=== PATIENT | female | born 1940 | race African-American/Black ===

== ENCOUNTER 2016-04-10 12:47 | Observation (INO) | payer MEDICARE, MEDICAID ==
--- NOTE | 2016-04-10 13:30 | ER Document Report ---
Addendum entered and electronically signed by RAQUEL THOMAS NP 04/11/16 11:20 : Course - Re-evaluation Re-evalutation: 04/11/16 11:19 Before I left my shift on 04/10/[address] Samuel for admission. He agreed, pt admitted to [facility]. Jonas Nelson updated. - Vital Signs Vital signs: Temp Pulse Resp BP Pulse Ox 97.1 F 94 19 137/60 H 100 04/11/16 08:04 04/11/16 08:04 04/11/16 08:04 04/11/16 08:04 04/11/16 08:04 - Laboratory Result Diagrams: 04/11/16 07:10 04/11/16 07:10 Laboratory results interpreted by me: 04/10/16 04/10/16 04/10/16 13:23 13:23 15:55 Hgb 11.0 L Hct 33.6 L RDW 16.1 H Seg Neutrophils % 78.3 H Lymphocytes % 12.0 L Potassium 5.1 H AST 59 H Albumin 3.3 L Urine Ketones TRACE H Addendum entered and electronically signed by JONAS NELSON PA 04/10/16 21:21: Discharge - Discharge Clinical Impression: Altered mental status Qualifiers: Altered mental status type: unspecified Qualified Code(s): R41.82 - Altered mental status, unspecified Condition: Stable Disposition: ADMITTED INPATIENT Admitting Provider: Hospitalist - Dr. Samuel Referrals: MYNOR BULL MD [Primary Care Provider] - Follow up as needed Original Note: ED General - General Stated Complaint: ALTERED MENTAL STATUS Mode of Arrival: Medic Information source: Emergency Med Personnel Notes: Patient presents to the emergency department. [facility] reports [facility] [place] sent patient for a decline in well-being. Patient was just discharged from [facility] 2 days ago after treatment for pneumonia. Patient is lethargic and does not answer questions. TRAVEL OUTSIDE OF THE [place] IN LAST 30 DAYS: No - HPI Onset: This morning Onset/Duration: Persistent Quality of pain: No pain Associated symptoms: None Exacerbated by: Denies Relieved by: Denies Similar symptoms previously: Yes Recently seen / treated by doctor: Yes - Related Data Allergies/Adverse Reactions: strawberry [[place]] Allergy (Severe, Verified 03/23/16 06:10) rash heparin Allergy (Intermediate, Verified 03/27/16 13:23) Thrombocytopenia Past Medical History - General Information source: Relative - daughters, Emergency Med Personnel, Outside Facility Records - Social History Smoking Status: Unknown if Ever Smoked Cigarette use (# per day): No Frequency of alcohol use: None Drug Abuse: None Lives with: Assisted Family History: CVA, Hyperlipidemia, Hypertension, Other - No information available at this point in time. - Past Medical History Cardiac Medical History: Reports: Hx Coronary Artery Disease, Hx DVT, Hx Heart Attack, Hx Hypercholesterolemia, Hx Hypertension Denies: Hx Congestive Heart Failure, Hx Pulmonary Embolism Pulmonary Medical History: Reports: Hx Bronchitis, Hx COPD, Hx Pneumonia Neurological Medical History: Reports: Hx Cerebrovascular Accident, Hx Seizures - Last episode December,. Endocrine Medical History: Denies: Hx Diabetes Mellitus Type 1, Hx Diabetes Mellitus Type 2, Hx Hyperthyroidism, Hx Hypothyroidism Malignancy Medical History: Reports: Hx Lung Cancer - "Spot" of lung cancer, with apparently no treatment plan. GI Medical History: Denies: Hx Cirrhosis, Hx Hepatitis Musculoskeltal Medical History: Reports Hx Arthritis Skin Medical History: Denies Hx Eczema, Denies Hx Psoriasis Psychiatric Medical History: Reports: Hx Dementia Infectious Medical History: Denies: Hx Hepatitis Past Surgical History: Reports: Hx Appendectomy, Hx Neurologic Surgery - cerebral aneurysm clips x2, Other - Clipping of cerebral aneurysm; implantation of subcutaneous venous port. - Immunizations Hx Diphtheria, Pertussis, Tetanus Vaccination: No Review of Systems - Review of Systems Notes: Review HPI for review of systems., All other systems negative Physical Exam - Vital signs Vitals: Temp Pulse Resp BP Pulse Ox 97.5 F 84 20 117/58 L 99 04/10/16 12:57 04/10/16 12:57 04/10/16 12:57 04/10/16 12:57 04/10/16 12:57 - Notes Notes: PHYSICAL EXAMINATION: GENERAL: lethargic HEAD: Atraumatic, normocephalic. EYES: Pupils equal round extraocular movements intact, sclera anicteric, conjunctiva are normal. ENT: nares patent, dry whispers- unable to understand NECK: laying on left side LUNGS: decreased, agonal breathing at times HEART: Regular rate ABDOMEN: Soft, no tenderness. No guarding, no rebound EXTREMITIES: Normal range of motion, no pitting edema. No cyanosis. NEUROLOGICAL: Cranial nerves grossly intact. Normal sensory/motor exams. PSYCH: flat SKIN: Warm, Dry, normal turgor, no rashes or lesions noted Course - Re-evaluation Re-evalutation: 04/10/16 Daughter was in patient's room she reports mother was sitting up in bed eating food last . She reports this is different from mother's usually affect. Possible seizure. Will contact [facility]. 04/10/16 17:27 I contacted patient's nurse Linh at [facility]. She reports patient's demeanor has changed since discharge from the hospital and arrival at [facility]. She reports that this patient would nod her head and speak to her in whispers yesterday. She reports this morning the patient would not eat breakfast, did not take her medications and was not responding, would not nod. 04/10/16 18:[address] Franco regarding patient's presentation labs. He advised admission for altered mental status. Paged Dr. Dodson, no response. Patient turned position changed patient mumbles no clear words. No distress respiratory rate even at this time 04/10/16 20:00 Report given to Jonas HORN. - Vital Signs Vital signs: Temp Pulse Resp BP Pulse Ox 97.5 F 84 15 116/61 100 04/10/16 12:57 04/10/16 12:57 04/10/16 18:42 04/10/16 18:43 04/10/16 18:43 - Laboratory Result Diagrams: 04/10/16 13:23 04/10/16 13:23 Laboratory results interpreted by me: 04/10/16 04/10/16 04/10/16 13:23 13:23 15:55 Hgb 11.0 L Hct 33.6 L RDW 16.1 H Seg Neutrophils % 78.3 H Lymphocytes % 12.0 L Potassium 5.1 H AST 59 H Albumin 3.3 L Urine Ketones TRACE H - Diagnostic Test Radiology reviewed: Image reviewed, Reports reviewed - atelectasis LLL per xray CT notes chronic changes - EKG Interpretation by Me EKG shows normal: Sinus rhythm When compared to previous EKG there are: No significant change Discharge - Discharge Clinical Impression: Altered mental status Qualifiers: Altered mental status type: unspecified Qualified Code(s): R41.82 - Altered mental status, unspecified Condition: Stable Disposition: ADMITTED INPATIENT [facility]
[2016-04-10 13:49] LABS: ABSOLUTE BASOPHILS # (AUTO) 0.1 10^3/uL (0.0-0.2); ABSOLUTE LYMPHOCYTES (AUTO) 1.1 10^3/uL (0.5-4.7); ABSOLUTE MONOCYTES (AUTO) 0.8 10^3/uL (0.1-1.4); ABSOLUTE NEUT (AUTO) 7.4 10^3/uL (1.7-8.2); BASOPHILS % (AUTO) 0.9 % (0-2); EOSINOPHILS % (AUTO) 0.2 % (0-6); HEMATOCRIT 33.6 % (36.0-47.0); HGB HCT DIFFERENCE -0.6; MEAN CORPUSCULAR HEMOGLOBIN 27.3 pg (27.0-33.4); MEAN CORPUSCULAR HGB CONC 32.6 g/dL (32.0-36.0); MEAN CORPUSCULAR VOLUME 84 fl (80-97); MONOCYTES % (AUTO) 8.6 % (3-13); RED BLOOD COUNT 4.02 10^6/uL (3.72-5.28); RED CELL DISTRIBUTION WIDTH 16.1 % (11.5-14.0); SEGMENTED NEUTROPHILS % (AUTO) 78.3 % (42-78); WHITE BLOOD COUNT 9.5 10^3/uL (4.0-10.5)
[2016-04-10 14:08] LABS: ALANINE AMINOTRANSFERASE 45 U/L (9-52); ALBUMIN 3.3 g/dL (3.5-5.0); ALKALINE PHOSPHATASE 103 U/L (38-126); ANION GAP 11 (5-19); ASPARTATE AMINO TRANSFERASE 59 U/L (14-36); BILIRUBIN,TOTAL 0.7 mg/dL (0.2-1.3); BLOOD UREA NITROGEN 15 mg/dL (7-20); CALCIUM 9.6 mg/dL (8.4-10.2); CARBON DIOXIDE 26 mmol/L (22-30); CHLORIDE 102 mmol/L (98-107); CREATININE RESULT 0.59 mg/dL (0.52-1.25); GLUCOSE 98 mg/dL (75-110); POTASSIUM 5.1 mmol/L (3.6-5.0); SODIUM 139.4 mmol/L (137-145); TOTAL PROTEIN 7.3 g/dL (6.3-8.2)
[2016-04-10 16:30] LABS: APPEARANCE,URINE SLIGHTLY-CLOUDY; BILIRUBIN,URINE NEGATIVE (NEGATIVE); GLUCOSE, URINE NEGATIVE (NEGATIVE); KETONES,URINE TRACE mg/dL (NEGATIVE); LEUKOCYTE ESTERASE,URINE NEGATIVE (NEGATIVE); NITRITE,URINE NEGATIVE (NEGATIVE); PROTEIN,URINE NEGATIVE (NEGATIVE); URINE SPECIFIC GRAVITY 1.017; UROBILINOGEN,URINE NEGATIVE mg/dL (<2.0)
[2016-04-10] MEDS ORDERED: NORMAL SALINE 1000 ML 1,000 ML IV PRN (19:36)
--- NOTE | 2016-04-10 21:21 | EKG REPORT ---
SEVERITY:- ABNORMAL ECG - SINUS RHYTHM PROBABLE LEFT VENTRICULAR HYPERTROPHY NONSPECIFIC LATERAL ST CHANGES : Confirmed by: Anthony Owsuu MD 10-Apr-2016 21:20:52
[2016-04-10] MEDS ORDERED: DEXTROSE 5%-NORMAL SALINE 1,000 ML IV PRN (21:46)
[2016-04-10] MEDS ORDERED: ACETAMINOPHEN 650 MG SUPP.RECT PR PRN (21:46)
[2016-04-10 21:57] LABS: ADD ON TESTING BLD IN LAB ACKNOWLEDGE
--- NOTE | 2016-04-10 22:19 | PDOC H&P ---
History of Present Illness Admission Date/PCP: MYNOR BULL--[facility] Patient complains of: AMS History of Present Illness: JOSE ANGEL ROBERTSON is a 75 year old female, currently residing at [facility], well known to the hospitalist service for multiple admissions this year for a number of issues, who presents to the emergency room for evaluation of above complaint. Patient has been discussed with emergency room nurse practitioner who evaluated the patient. Patient is aphasic, and only minimally interactive and is able to provide no history whatsoever in terms of acute or chronic events, review of systems, personal habits, family history, etc. No friends or family are present. Old inpatient records are reviewed.. She was sent from the shelter for a "decline in well-being." Was noted to be sitting up in bed and eating food of this week. Staff reported that patient was not responding as much as usual today. No further information available this point in time. No report of fever; patient has been afebrile and hemodynamically stable since arrival in the emergency room. Hospitalized on our service 04/02 through 04/07/2016, with transfer diagnoses including pulmonary emboli and left lung mass. Transfer summary has been reviewed. For a more complete discussion of her other recent medical history, please refer to history and physical 03/23/2016, when she was admitted for probable aspiration pneumonia. Document has been reviewed, and is available for further review in [employer]. Laboratory results are listed in [employer] and are reviewed. X-ray summary results are listed below, with full report(s) reviewed. . EKG reviewed and compared to prior tracing from 04/02/2016 Social history/personal habits: . Currently residing at [facility]. No alcohol or tobacco use since May 2015. Family History : At least one child as asthma. All siblings are . Uncertain cause of of her parents. Allergies/adverse reactions are listed in [employer] and are reviewed. Home medications are reviewed from her recent transfer summary to [facility] and are to be reconciled by nursing staff [facility]. [facility] medications initially autopopulated into [employer] may not accurately reflect patient's true medications, dosages, and/or frequencies. REVIEW OF SYSTEMS: See history and present illness. No further information available this point in time. PHYSICAL EXAMINATION: 5 feet 4 inches tall. 40.8 kg. BMI 15.4 kg/m. Blood pressure 136/65. Pulse 94 and regular. 100% saturation on room air. Respirations are 17 and unlabored. Temperature 97.5. Thin elderly -[place] female who nevertheless appears approximately her stated age. She is awake, and does look at examiner when she is addressed in a normal volume voice. Appears on occasion to attempt to speak, but otherwise makes no effort to do same and makes no other attempt to interact with examiner , other than following examiner at times with her eyes. No obvious distress. Skin is warm and dry. No grossly obvious evidence of rash in areas of skin examined. No subcutaneous nodules palpated. ENT: Hearing grossly normal to normal conversation. Tongue midline on very slight protrusion pink and slightly moist. Eyes: No scleral icterus. Pupils equal and reactive to light at 3 mm. Serena conjunctivae. No raccoon eyes. Neck is nontender to palpation. Midline trachea. No palpable thyroid nodule mass enlargement or tenderness. Lymphatic: No palpable cervical or clavicular nodes. Psychiatric: Can't be adequately evaluated due to her current status. Lungs: Auscultation reveals clear and equal breath sounds bilaterally. No use of accessory respiratory muscles. Cardiovascular: Heart regular rate and rhythm, without gallop murmur or rub. No carotid or abdominal aortic bruits. No ankle or pedal edema. Faintly palpable dorsalis pedis pulses. Abdomen: soft, slightly distended nontender with positive bowel sounds. Unable to adequately evaluate abdomen for masses or organomegaly due to distention. Extremities: Feet are warm and dry. No calf tenderness to compression. No grossly obvious visual evidence of calf swelling. Both lower extremities are contracted somewhat at hips and knees, severely limiting any range of motion attempt. Neurologic: Patellar reflexes absent. Absent Babinski. Light touch can't be determined due to her current status.. Does not respond to request for dorsiflexion or plantar flexion of her feet. Completely aphasic. Past Medical History Past Medical History: For more complete description of her past medical history, please refer to documentation in history and physical, March 23 of last year. Cardiac Medical History: Reports: Coronary Artery Disease, DVT, Myocardial Infarction, Hyperlipidema, Hypertension, Pulmonary Embolism Denies: Congestive Heart Failure Pulmonary Medical History: Reports: Bronchitis, Chronic Obstructive Pulmonary Disease (COPD), Pneumonia Neurological Medical History: Reports: Seizures - Last episode December,. Endocrine Medical History: Denies: Diabetes Mellitus Type 1, Diabetes Mellitus Type 2, Hyperthyroidism, Hypothyroidism Malignancy Medical History: Reports: Lung Cancer - Left lung nodule, felt to be malignant, with no treatment planned. GI Medical History: Denies: Cirrhosis, Hepatitis Musculoskeltal Medical History: Reports: Arthritis Skin Medical History: Denies: Eczema, Psoriasis Psychiatric Medical History: Reports: Dementia Hematology: Denies: Anemia Past Surgical History Past Surgical History: Reports: Appendectomy, Other - Clipping of cerebral aneurysm; implantation of subcutaneous venous port. Social History Information Source: Emergency Med Personnel, [facility] Records Lives with: Assisted Smoking Status: Former Smoker Frequency of Alcohol Use: None Hx Recreational Drug Use: No Drugs: None Hx Prescription Drug Abuse: No - Advance Directive Resuscitation Status: Full Code Surrogate healthcare decision maker:: Her son Oumar Chaidez Family History Family History: CVA, Hyperlipidemia, Hypertension, Other - No information available at this point in time. Parental Family History Reviewed: Yes - old records reviewed. Children Family History Reviewed: Yes Sibling(s) Family History Reviewed.: Yes Medication/Allergy Home Medications: Fluticasone Propionate [Flonase Nasal [place] 50 Mcg/[place] 16 gm] 1 spray NASL DAILY #1 06/08/15 Albuterol Sulfate [Proair HFA] 2 puff IH Q4HP PRN 07/27/15 Carvedilol 12.5 mg PO BID 09/21/15 Lactulose 15 ml PO QHS 11/09/15 Lacosamide [Vimpat 100 mg Tablet] 200 mg PO Q12 #30 tablet 12/24/15 Acetaminophen [Tylenol 325 mg Tablet] 650 mg PO Q6 PRN 03/23/16 Amlodipine Besylate [Norvasc 5 mg Tablet] 10 mg PO DAILY 03/23/16 Magnesium Oxide [Mag-Ox 400 mg Tablet] 400 mg PO DAILY 03/23/16 Omeprazole 20 mg PO DAILY 03/23/16 Albuterol Sulfate [Ventolin 0.083% Neb 2.5 mg/3 mL Ampul] 2.5 mg NEB RTQ4HP PRN vial.neb 03/28/16 Apixaban [Eliquis 5 mg Tablet] 5 mg PO Q12A tablet 04/07/16 Budesonide/Formoterol Fumarate [Symbicort HFA 80-4.5 mcg Inhaler 6.9 gm] 2 puff IH BID #1 inhaler 04/07/16 Lorazepam [Ativan 0.5 mg Tablet] 0.5 mg PO Q6HP PRN #10 tablet 04/07/16 Allergies/Adverse Reactions: strawberry [[place]] Allergy (Severe, Verified 04/10/16 21:22) rash heparin Allergy (Intermediate, Verified 04/10/16 21:22) Thrombocytopenia Physical Exam Vital Signs: Temp Pulse Resp BP Pulse Ox 97.5 F 84 15 136/65 H 100 04/10/16 12:57 04/10/16 12:57 04/10/16 21:01 04/10/16 21:01 04/10/16 21:01 Intake & Output 04/09/16 04/10/16 04/11/16 00:59 00:59 00:59 Weight 40.823 kg Results Laboratory Results: 04/10/16 13:23 04/10/16 13:23 04/10/16 04/10/16 04/10/16 13:23 13:23 13:23 WBC 9.5 RBC 4.02 Hgb 11.0 L Hct 33.6 L MCV 84 MCH 27.3 MCHC 32.6 RDW 16.1 H Plt Count 419 Seg Neutrophils % 78.3 H Lymphocytes % 12.0 L Monocytes % 8.6 Eosinophils % 0.2 Basophils % 0.9 Absolute Neutrophils 7.4 Absolute Lymphocytes 1.1 Absolute Monocytes 0.8 Absolute Eosinophils 0.0 Absolute Basophils 0.1 Sodium 139.4 Potassium 5.1 H Chloride 102 Carbon Dioxide 26 Anion Gap 11 BUN 15 Creatinine 0.59 Est GFR ( Amer) > 60 Est GFR (Non-Af Amer) > 60 Glucose 98 Lactic Acid 1.3 Calcium 9.6 Total Bilirubin 0.7 AST 59 H ALT 45 Alkaline Phosphatase 103 Total Protein 7.3 Albumin 3.3 L Lipase 78.0 Urine Color Urine Appearance Urine pH Ur Specific [place] Urine Protein Urine Glucose (UA) Urine Ketones Urine Blood Urine Nitrite Ur Leukocyte Esterase Urine WBC (Auto) Urine RBC (Auto) 04/10/16 15:55 WBC RBC Hgb Hct MCV MCH MCHC RDW Plt Count Seg Neutrophils % Lymphocytes % Monocytes % Eosinophils % Basophils % Absolute Neutrophils Absolute Lymphocytes Absolute Monocytes Absolute Eosinophils Absolute Basophils Sodium Potassium Chloride Carbon Dioxide Anion Gap BUN Creatinine Est GFR ( Amer) Est GFR (Non-Af Amer) Glucose Lactic Acid Calcium Total Bilirubin AST ALT Alkaline Phosphatase Total Protein Albumin Lipase Urine Color YELLOW Urine Appearance SLIGHTLY-CLOUDY Urine pH 7.0 Ur Specific [place] 1.017 Urine Protein NEGATIVE Urine Glucose (UA) NEGATIVE Urine Ketones TRACE H Urine Blood NEGATIVE Urine Nitrite NEGATIVE Ur Leukocyte Esterase NEGATIVE Urine WBC (Auto) 5 Urine RBC (Auto) 9 Impressions: Chest X-Ray 04/10/16 13:29 IMPRESSION: NO ACUTE RADIOGRAPHIC FINDING IN THE CHEST. Head CT 04/10/16 16:53 IMPRESSION: Chronic changes. No acute abnormality. Assessment & Plan - Diagnosis (1) Acute encephalopathy Is this a current diagnosis for this admission?: YesPlan: Uncertain etiology at this point in time. May simply be an element of dehydration. No obvious source of infection has been detected. No reported fever and none documented since arrival in the emergency room. Hopefully will clear with time and supportive care. Swallow screen pending--passed, per floor nurse. (2) Hyperkalemia Is this a current diagnosis for this admission?: YesPlan: Mild. Follow-up Chem-7. (3) Anticoagulated Is this a current diagnosis for this admission?: YesPlan: Resume home medications as appropriate once these have been reviewed. (4) History of pulmonary embolism Is this a current diagnosis for this admission?: Yes (5) Dysphagia Qualifiers: Dysphagia type: unspecified Qualified Code(s): R13.10 - Dysphagia, unspecified Is this a current diagnosis for this admission?: YesPlan: Recurrent problem since prior stroke. (6) Full code status Is this a current diagnosis for this admission?: Yes (7) History of CVA (cerebrovascular accident) Is this a current diagnosis for this admission?: Yes (8) History of DVT (deep vein thrombosis) Is this a current diagnosis for this admission?: Yes (9) Seizure disorder Is this a current diagnosis for this admission?: YesPlan: Seizure precautions.Resume home medications as appropriate once these have been reviewed. - Time Time Spent with patient: 60 minutes
[2016-04-10 22:20] LABS: MAGNESIUM 2.2 mg/dL (1.6-2.3)
[2016-04-10] MEDS ORDERED: ALBUTEROL SULFATE 0.083% NEB 2.5 MG/3 ML AMPUL NEB PRN (22:38)
[2016-04-10] MEDS ORDERED: ENALAPRILAT DIHYDRATE INJ/PF 1.25 MG/1 ML SDV IV PRN (22:58)
[2016-04-10 23:11] LABS: PROTHROMBIN TIME 14.7 SEC (11.4-15.4)
[2016-04-10 23:12] LABS: PARTIAL THROMBOPLASTIN TIME 36.6 SEC (23.5-35.8)
[2016-04-10 23:21] LABS: ANION GAP 13 (5-19); BLOOD UREA NITROGEN 13 mg/dL (7-20); CALCIUM 8.8 mg/dL (8.4-10.2); CARBON DIOXIDE 23 mmol/L (22-30); CHLORIDE 104 mmol/L (98-107); CREATINE KINASE 353 U/L (30-135); CREATININE RESULT 0.51 mg/dL (0.52-1.25); GLUCOSE 93 mg/dL (75-110); POTASSIUM 4.4 mmol/L (3.6-5.0); SODIUM 139.6 mmol/L (137-145)
[2016-04-10 23:30] LABS: CREATINE KINASE MB 1.86 ng/mL (<4.55)
[2016-04-10 23:35] LABS: TROPONIN I < 0.012 ng/mL
[2016-04-11] MEDS ORDERED: DEXTROSE 5%-NORMAL SALINE 1,000 ML IV PRN (03:02)
[2016-04-11] MEDS ORDERED: LORAZEPAM 0.5 MG TABLET PO PRN (03:07)
[2016-04-11] MEDS ORDERED: POLYETHYLENE GLYCOL 3350 POWDER 17 GM/1 PACKET PO PRN (03:07)
[2016-04-11] MEDS: APIXABAN 5 MG TABLET PO SCH ×2 (05:22→17:30)
[2016-04-11] MEDS: LANSOPRAZOLE 15 MG TAB.RAP.DR PO SCH (05:22)
[2016-04-11 07:35] LABS: ABSOLUTE MONOCYTES (AUTO) 0.7 10^3/uL (0.1-1.4); ABSOLUTE NEUT (AUTO) 6.1 10^3/uL (1.7-8.2); BASOPHILS % (AUTO) 0.5 % (0-2); EOSINOPHILS % (AUTO) 0.2 % (0-6); HEMATOCRIT 34.3 % (36.0-47.0); HEMOGLOBIN 11.2 g/dL (12.0-15.5); HGB HCT DIFFERENCE -0.7; LYMPHOCYTES % (AUTO) 13.2 % (13-45); MEAN CORPUSCULAR HEMOGLOBIN 27.4 pg (27.0-33.4); MEAN CORPUSCULAR HGB CONC 32.7 g/dL (32.0-36.0); MEAN CORPUSCULAR VOLUME 84 fl (80-97); MONOCYTES % (AUTO) 8.8 % (3-13); RED CELL DISTRIBUTION WIDTH 16.1 % (11.5-14.0); SEGMENTED NEUTROPHILS % (AUTO) 77.3 % (42-78); WHITE BLOOD COUNT 7.9 10^3/uL (4.0-10.5)
[2016-04-11 07:42] LABS: ANION GAP 12 (5-19); BLOOD UREA NITROGEN 11 mg/dL (7-20); CARBON DIOXIDE 25 mmol/L (22-30); CHLORIDE 102 mmol/L (98-107); GLUCOSE 101 mg/dL (75-110); POTASSIUM 4.4 mmol/L (3.6-5.0); SODIUM 138.8 mmol/L (137-145)
[2016-04-11] MEDS ORDERED: TOBRAMYCIN SULFATE INJ 80 MG/2 ML VIAL NEB SCH (08:00)
[2016-04-11] MEDS: CALCIUM CARBONATE 250 MG/VITAMIN D3 125 UNIT TABLET PO SCH ×2 (08:54→17:31)
[2016-04-11] MEDS: CARVEDILOL 12.5 MG TABLET PO SCH ×2 (08:54→17:30)
[2016-04-11] MEDS: AMLODIPINE BESYLATE 5 MG TABLET PO SCH (09:05)
[2016-04-11] MEDS: MAGNESIUM OXIDE 400 MG TABLET PO SCH (09:05)
[2016-04-11] MEDS ORDERED: METOPROLOL TARTRATE PF/INJ 5 MG/5 ML SDV IV SCH (10:00)
[2016-04-11] MEDS ORDERED: NORMAL SALINE IV SCH (10:00)
[2016-04-11] MEDS ORDERED: LACOSAMIDE IV SCH (10:00)
[2016-04-11] MEDS ORDERED: LACOSAMIDE INJ/PF 200 MG/20 ML SDV IV SCH ×2 (10:00)
[2016-04-11] MEDS: LACOSAMIDE 100 MG TABLET PO SCH ×2 (11:02→22:28)
[2016-04-11] MEDS: BUDESONIDE/FORMOTEROL 80-4.5 MCG 60 PUFF/6.9 GM MDI IH SCH ×2 (11:03→17:31)
[2016-04-11] MEDS: FLUTICASONE NASAL SPRAY 50 MCG/SPRY 120 SPRAY/16 GM NASL SCH (11:03)
--- NOTE | 2016-04-11 17:36 | PDOC PROGRESS REPORT ---
Subjective Progress Note for:: 04/11/16 Subjective:: No new issues reported. Patient is nonverbal. I cannot obtain history from patient. Physical Exam Vital Signs: Temp Pulse Resp BP Pulse Ox 97.9 F 91 19 128/59 H 98 04/11/16 15:18 04/11/16 15:18 04/11/16 15:18 04/11/16 15:18 04/11/16 15:18 Intake & Output 04/10/16 04/11/16 04/12/16 06:59 06:59 06:59 Intake Total 538 0 Output Total 600 200 Balance -62 -200 GENERAL: No acute distress HEENT: Conjunctiva clear, deformity and right temporal region consistent with history of brain surgery, nonicteric, moist mucous membranes, no JVD, midline trachea RESPIRATORY: CTAB CARDIAC: Regular rate and rhythm, no murmurs/gallops/rubs ABDOMEN: Soft, nondistended, nontender, positive bowel sounds, no rebound, no guarding EXTREMETIES: No edema, cyanosis, clubbing NEUROLOGIC: Alert, nonverbal, CN's grossly intact, right hemiparesis SKIN: No rash, wounds. Right chest port noted Results Laboratory Results: 04/11/16 07:10 04/11/16 07:10 04/10/16 04/11/16 04/11/16 22:55 07:10 07:10 WBC 7.9 RBC 4.10 Hgb 11.2 L Hct 34.3 L MCV 84 MCH 27.4 MCHC 32.7 RDW 16.1 H Plt Count 389 Seg Neutrophils % 77.3 Lymphocytes % 13.2 Monocytes % 8.8 Eosinophils % 0.2 Basophils % 0.5 Absolute Neutrophils 6.1 Absolute Lymphocytes 1.0 Absolute Monocytes 0.7 Absolute Eosinophils 0.0 Absolute Basophils 0.0 Sodium 139.6 138.8 Potassium 4.4 4.4 Chloride 104 102 Carbon Dioxide 23 25 Anion Gap 13 12 BUN 13 11 Creatinine 0.51 L 0.50 L Est GFR ( Amer) > 60 > 60 Est GFR (Non-Af Amer) > 60 > 60 Glucose 93 101 Calcium 8.8 9.0 04/10/16 04/10/16 22:39 22:55 Creatine Kinase 353 H CK-MB (CK-2) 1.86 Troponin I < 0.012 Impressions: Chest X-Ray 04/10/16 13:29 IMPRESSION: NO ACUTE RADIOGRAPHIC FINDING IN THE CHEST. Head CT 04/10/16 16:53 IMPRESSION: Chronic changes. No acute abnormality. Assessment & Plan - Diagnosis (1) Acute encephalopathy Is this a current diagnosis for this admission?: YesPlan: Exact etiology is not understood. Head CT shows no acute findings. Infectious disease workup is negative. Lab workup negative. No evidence of hypoglycemia. Patient may be exhibiting subclinical seizure activity with postictal state. Patient has had recurrent admissions recently. If there is still consideration of ongoing seizure activity patient may require transfer for 24-hour EEG and neurology evaluation. Palliative care discussions have been held with patient' s son last week and he was not receptive at all. He wishes to continue aggressive measures and full CODE STATUS. (2) Seizure disorder Is this a current diagnosis for this admission?: YesPlan: Continue Vimpat 200 mg twice daily. Patient really should be palliative care, however family wants to continue with aggressive plan of treatment patient may need to be transferred for 24 hour EEG monitoring and neurology evaluation. (3) Advanced dementia Is this a current diagnosis for this admission?: YesPlan: Continue Aricept and continue supportive care. Patient resides at [facility] at baseline. (4) Chronic obstructive pulmonary disease Qualifiers: COPD type: unspecified COPD Qualified Code(s): J44.9 - Chronic obstructive pulmonary disease, unspecified Is this a current diagnosis for this admission?: YesPlan: Patient has oxygen dependent COPD. Continue Symbicort. She is to continue albuterol nebulizer treatments. (5) Hypertension Qualifiers: Hypertension type: essential hypertension Qualified Code(s): I10 - Essential (primary) hypertension Is this a current diagnosis for this admission?: YesPlan: Continue Coreg and Norvasc. (6) History of CVA (cerebrovascular accident) Is this a current diagnosis for this admission?: YesPlan: Patient has a remote history of stroke with right hemiparesis. (7) History of cerebral aneurysm repair Is this a current diagnosis for this admission?: Yes (8) Mass of left lung Is this a current diagnosis for this admission?: YesPlan: Patient has a 13 mm left lung nodule. I have discussed this finding with patient's son on recent admission. He is already aware of this condition. He states this has been worked up as an outpatient with a PET scan. He states that PET scan did show metabolic activity and he was told this was likely malignancy. He was told by oncology that patient would likely not be a candidate given her poor overall health for aggressive treatment. Patient's son decided as an outpatient not to pursue this aggressively. I have had a lengthy discussion with him regarding the fact that she has a known malignancy that is not being treated and I have readdressed patient's CODE STATUS. Son still desires for her to be FULL CODE STATUS. I have discussed palliative measures with him and he is not interested in this. He wishes to continue with aggressive measures. (9) History of pulmonary embolism Is this a current diagnosis for this admission?: YesPlan: Patient was diagnosed with acute pulmonary embolism recent admission. She has had prior episode of lower extremity DVT but had to be taken off of anticoagulation secondary to hemorrhoidal bleeding. She has no active bleeding at this time. After extensive discussion with her son and power of district attorney regarding risk/benefit/alternative of resuming anticoagulation patient's son decided he would like us to treat patient with anticoagulation. He is advised that if she should have recurrent bleeding we will have to abandon anticoagulation and he is aware of this. At this point since this is patient's second episode of VTE she will require lifelong anticoagulation if she can tolerate it. Continue Eliquis. (10) Full code status Is this a current diagnosis for this admission?: Yes (11) Pneumonia Qualifiers: Pneumonia type: due to unspecified organism Laterality: left Lung location: lower lobe of lung Qualified Code(s): J18.1 - Lobar pneumonia, unspecified organism Is this a current diagnosis for this admission?: YesPlan: Patient has had adequate course of treatment. I will discontinue inhaled tobramycin. Chest x-ray shows no airspace disease. - Time Time Spent with patient: 25-34 minutes Anticipated discharge: SNF
[2016-04-11] MEDS ORDERED: TOBRAMYCIN SULFATE NEB 40 MG/ML 30 ML NEB SCH ×2 (20:00)
[2016-04-11] MEDS: LACTULOSE SYRUP 20 GM/30 ML UDCUP PO SCH (22:27)
[2016-04-11] MEDS: DONEPEZIL HCL 5 MG TABLET PO SCH (22:27)
[2016-04-11] MEDS: ATORVASTATIN CALCIUM 40 MG TABLET PO SCH (22:28)
[2016-04-12] MEDS: APIXABAN 5 MG TABLET PO SCH ×2 (06:06→17:14)
[2016-04-12] MEDS: LANSOPRAZOLE 15 MG TAB.RAP.DR PO SCH (06:06)
[2016-04-12 06:17] LABS: ABSOLUTE BASOPHILS # (AUTO) 0.1 10^3/uL (0.0-0.2); ABSOLUTE LYMPHOCYTES (AUTO) 0.9 10^3/uL (0.5-4.7); ABSOLUTE MONOCYTES (AUTO) 0.8 10^3/uL (0.1-1.4); ABSOLUTE NEUT (AUTO) 6.3 10^3/uL (1.7-8.2); BASOPHILS % (AUTO) 0.7 % (0-2); EOSINOPHILS % (AUTO) 0.4 % (0-6); HEMOGLOBIN 10.8 g/dL (12.0-15.5); HGB HCT DIFFERENCE -0.6; LYMPHOCYTES % (AUTO) 11.1 % (13-45); MEAN CORPUSCULAR HEMOGLOBIN 27.1 pg (27.0-33.4); MEAN CORPUSCULAR HGB CONC 32.7 g/dL (32.0-36.0); MEAN CORPUSCULAR VOLUME 83 fl (80-97); MONOCYTES % (AUTO) 10.3 % (3-13); RED BLOOD COUNT 3.98 10^6/uL (3.72-5.28); RED CELL DISTRIBUTION WIDTH 15.8 % (11.5-14.0); SEGMENTED NEUTROPHILS % (AUTO) 77.5 % (42-78); WHITE BLOOD COUNT 8.1 10^3/uL (4.0-10.5)
[2016-04-12 06:24] LABS: ANION GAP 12 (5-19); BLOOD UREA NITROGEN 8 mg/dL (7-20); CALCIUM 8.7 mg/dL (8.4-10.2); CARBON DIOXIDE 24 mmol/L (22-30); CHLORIDE 102 mmol/L (98-107); CREATININE RESULT 0.44 mg/dL (0.52-1.25); GLUCOSE 87 mg/dL (75-110); MAGNESIUM 1.9 mg/dL (1.6-2.3); SODIUM 137.6 mmol/L (137-145)
--- NOTE | 2016-04-12 07:32 | Physician Advisory Note ---
Physician Advisor ProgressNote .: [facility], I have reviewed the medical record for this patient. Physician Advisor Statement: Possible documentation opportunities if attending agrees: 1. "Rt hemiparesis" (mentioned in PE once - please keep in dx list, too) 2. "underweight with protein-calorie malnutrition [state mild, mod, or severe] with BMI 14.9, Cr 0.44, ____[?wt loss, ?appetite loss, ]" [if possible, give specifics on intake, wt loss, loss of SQ fat & muscle mass, diminished hand environmental monitoring technician strength, & clinical importance such as (A) nutritional assessment ordered, (B) modified diet or supplements ordered, (C) additional labs ordered, (D) prolonged wound healing time, (E) delayed infxn clearance] - - - Auditors are strict about the dx of malnutrition - has to be explicitly spelled out. 3. ? - "possible adverse effect of Aricept, correctly prescribed & properly administered, causing " [toxic encephalopathy? Sz.s? wt loss? ...] - Aricept has been associated with seizures, wt loss, anorexia, somnolence ... per [facility] 4. "Chronic Hypoxemic Respiratory Failure requiring __L O2 at baseline" - vs. "not O2- dependent" - please clarify in documentation: this H&P + progress note states pt is O2 -dependent, but last H&P stated "non-home O2 dependent COPD" & pt not receiving O2 here this adm w/O2 sats high 90s on RA.. 5. "pressure ulcer coccyx, unstageable" - vs stage ___. (noted by gis professor , need attending confirmation to capture this co-morbidity) 6. Please give explicit documentation of reasons pt continues to require hospital care rather than outpt care, how she is still different than baseline. As always, if concerned about any unstable VS or abnormal labs, please comment on them & note what doing about them, & please document each day the potential clinical problems you are concerned could occur if pt not kept in hospital for tx at this time. 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 ED gave 2 boluses of IVF. (+) K 5.1, BMI 15. Hgb 11s. Cr 0.5. HR up to 90s by 04/10 PM Attending ordered seizure precautions, tele monitoring, IV Vimpat, serial cardiac enzymes, f/u labs, swallow screen, speech therapy eval, gis professor eval. Status: Approp.ly brought in as Outpt Obs initially. Attending considering subclinical sz.s, considering transfer. Pt remained persistently tachycardic 'til 1/3 AM, unclear reasons (?related to hospital environment, dementia, or acute illness?). Kept x 2MNs in hospital already. If pt is to be transferred today, as already considered, she should remain Outpt Obs. If pt needs continued monitoring/testing today [facility], she may be appropriate to make Inpatient, if attending documents well how continued care in inpatient hospital setting is medically reasonable & necessary to protect pt's health, safety, & medical condition. Thanks for your help with documentation accuracy/specificity improvement! Xenia Oropeza MD [facility] Physician Advisor, Fellow of Hospital Medicine
[2016-04-12] MEDS: CARVEDILOL 12.5 MG TABLET PO SCH ×2 (08:31→17:14)
[2016-04-12] MEDS: CALCIUM CARBONATE 250 MG/VITAMIN D3 125 UNIT TABLET PO SCH ×2 (08:31→17:14)
[2016-04-12] MEDS: LACOSAMIDE 100 MG TABLET PO SCH ×2 (10:20→21:41)
[2016-04-12] MEDS: BUDESONIDE/FORMOTEROL 80-4.5 MCG 60 PUFF/6.9 GM MDI IH SCH ×2 (10:20→17:15)
[2016-04-12] MEDS: MAGNESIUM OXIDE 400 MG TABLET PO SCH (10:20)
[2016-04-12] MEDS: AMLODIPINE BESYLATE 5 MG TABLET PO SCH (10:20)
[2016-04-12] MEDS: FLUTICASONE NASAL SPRAY 50 MCG/SPRY 120 SPRAY/16 GM NASL SCH (10:21)
[2016-04-12] MEDS: POLYETHYLENE GLYCOL 3350 POWDER 17 GM/1 PACKET PO SCH (10:21)
[2016-04-12] MEDS: LACTULOSE SYRUP 20 GM/30 ML UDCUP PO SCH (21:40)
[2016-04-12] MEDS: DONEPEZIL HCL 5 MG TABLET PO SCH (21:40)
[2016-04-12] MEDS: ATORVASTATIN CALCIUM 40 MG TABLET PO SCH (21:41)
[2016-04-13] MEDS: APIXABAN 5 MG TABLET PO SCH (05:38)
[2016-04-13] MEDS: LANSOPRAZOLE 15 MG TAB.RAP.DR PO SCH (05:38)
[2016-04-13] MEDS: AMLODIPINE BESYLATE 5 MG TABLET PO SCH (10:37)
[2016-04-13] MEDS: POLYETHYLENE GLYCOL 3350 POWDER 17 GM/1 PACKET PO SCH (10:37)
[2016-04-13] MEDS: BUDESONIDE/FORMOTEROL 80-4.5 MCG 60 PUFF/6.9 GM MDI IH SCH (10:38)
[2016-04-13] MEDS: LACOSAMIDE 100 MG TABLET PO SCH (10:38)
[2016-04-13] MEDS: CARVEDILOL 12.5 MG TABLET PO SCH (10:38)
[2016-04-13] MEDS: MAGNESIUM OXIDE 400 MG TABLET PO SCH (10:39)
[2016-04-13] MEDS: CALCIUM CARBONATE 250 MG/VITAMIN D3 125 UNIT TABLET PO SCH (10:39)
[2016-04-13] MEDS: FLUTICASONE NASAL SPRAY 50 MCG/SPRY 120 SPRAY/16 GM NASL SCH (10:39)
[2016-04-13 12:11] VITALS: BP 118/63
--- NOTE | 2016-04-13 12:44 | PDOC TRANSFER SUMMARY ---
General - Admit/Disc Date/PCP Admission Date/Primary Care Provider: 04/10/16 21:46 MY[facility] BULL Discharge Date: 04/13/16 - Discharge Diagnosis (1) Acute encephalopathy Is this a current diagnosis for this admission?: Yes (2) Anemia of chronic disease Is this a current diagnosis for this admission?: Yes (3) Advanced dementia Is this a current diagnosis for this admission?: Yes (4) Anticoagulated Is this a current diagnosis for this admission?: Yes (5) Chronic obstructive pulmonary disease Is this a current diagnosis for this admission?: Yes (6) Epilepsy Is this a current diagnosis for this admission?: Yes (7) History of polysubstance abuse Is this a current diagnosis for this admission?: Yes (8) History of pulmonary embolism Is this a current diagnosis for this admission?: Yes (9) Hypertension Is this a current diagnosis for this admission?: Yes (10) Normocytic normochromic anemia Is this a current diagnosis for this admission?: Yes (11) Vascular dementia Is this a current diagnosis for this admission?: Yes (13) Dysphagia Is this a current diagnosis for this admission?: Yes (14) History of CVA (cerebrovascular accident) Is this a current diagnosis for this admission?: Yes (16) History of cerebral aneurysm repair Is this a current diagnosis for this admission?: Yes (17) Mass of left lung Is this a current diagnosis for this admission?: Yes - Additional Information Resuscitation Status: Full Code Discharge Diet: As Tolerated Discharge Activity: Activity As Tolerated Home Medications: Fluticasone Propionate [Flonase Nasal [place] 50 Mcg/[place] 16 gm] 1 spray NASL DAILY #1 06/08/15 Albuterol Sulfate [Proair HFA] 2 puff IH Q4HP PRN 07/27/15 Carvedilol 12.5 mg PO BID 09/21/15 Lactulose 15 ml PO QHS 11/09/15 Lacosamide [Vimpat 100 mg Tablet] 200 mg PO Q12 #30 tablet 12/24/15 Acetaminophen [Tylenol 325 mg Tablet] 650 mg PO Q6 PRN 03/23/16 Amlodipine Besylate [Norvasc 5 mg Tablet] 10 mg PO DAILY 03/23/16 Magnesium Oxide [Mag-Ox 400 mg Tablet] 400 mg PO DAILY 03/23/16 Omeprazole 20 mg PO DAILY 03/23/16 Albuterol Sulfate [Ventolin 0.083% Neb 2.5 mg/3 mL Ampul] 2.5 mg NEB RTQ4HP PRN vial.neb 03/28/16 Apixaban [Eliquis 5 mg Tablet] 5 mg PO Q12A tablet 04/07/16 Budesonide/Formoterol Fumarate [Symbicort HFA 80-4.5 mcg Inhaler 6.9 gm] 2 puff IH BID #1 inhaler 04/07/16 Lorazepam [Ativan 0.5 mg Tablet] 0.5 mg PO Q6HP PRN #10 tablet 04/07/16 History of Present Illness Admission Date/PCP: 04/10/16 21:46 [facility] Course Hospital Course: Patient is a 75yo AAF with a history of CVA with Right sided hemiparesis, cerebral aneurysmal clipping, and subsequent epilspy compounded by polysubstance abuse who presents from the halfway for failure to thrive and general decline. No infectious causes were ascertained. Patient has a known left lung mass which is thought to be a malignancy, but family declined outpatient evaluation as patient was deemed to be an acceptable candidate for chemotherapy or surgery. At this time, family meeting was held and son, who is power of commercial real estate attorney, agreed to return to the halfway with hospice in place. Physical Exam Vital Signs: Temp Pulse Resp BP Pulse Ox 97.2 F 83 20 118/63 100 04/13/16 11:10 04/13/16 11:10 04/13/16 11:10 04/13/16 11:10 04/13/16 11:10 Intake & Output 04/12/16 04/13/16 04/14/16 06:59 06:59 06:59 Intake Total 905 16 Output Total 525 550 Balance 380 -534 Weight 39.3 kg 43.1 kg Exam: GENERAL: No acute distress HEENT: Conjunctiva clear, deformity and right temporal region consistent with history of brain surgery, nonicteric, moist mucous membranes, no JVD, midline trachea RESPIRATORY: CTAB CARDIAC: Regular rate and rhythm, no murmurs/gallops/rubs ABDOMEN: Soft, nondistended, nontender, positive bowel sounds, no rebound, no guarding EXTREMETIES: No edema, cyanosis, clubbing NEUROLOGIC: Alert, nonverbal, CN's grossly intact, right hemiparesis SKIN: No rash, wounds. Right chest port noted Results Laboratory Results: 04/12/16 05:15 04/12/16 05:15 04/10/16 04/10/16 22:39 22:55 Creatine Kinase 353 H CK-MB (CK-2) 1.86 Troponin I < 0.012 Impressions: Chest X-Ray 04/10/16 13:29 IMPRESSION: NO ACUTE RADIOGRAPHIC FINDING IN THE CHEST. Head CT 04/10/16 16:53 IMPRESSION: Chronic changes. No acute abnormality. Transfer Plan - Disposition Transfer Plan: All questions to hospice - Time Spent with Patient Time spent with patient: Less than 30 Minutes Qualifiers PATEINT BEING DISCHARGED WITH ANY OF THE FOLLOWING DIAGNOSIS?: No Plan Time Spent: Less than 30 Minutes
--- NOTE | 2016-04-13 22:16 | PDOC PROGRESS REPORT ---
Subjective Progress Note for:: 04/12/16 Subjective:: Patient nonverbal. Unable to obtain review of systems Physical Exam Vital Signs: Temp Pulse Resp BP Pulse Ox 98.0 F 88 16 128/57 H 97 04/12/16 04:06 04/12/16 07:00 04/12/16 04:06 04/12/16 04:06 04/12/16 04:06 Intake & Output 04/11/16 04/12/16 04/13/16 06:59 06:59 06:59 Intake Total 538 905 Output Total 600 525 Balance -62 380 Weight 39.3 kg Exam: GENERAL: No acute distress HEENT: Conjunctiva clear, deformity and right temporal region consistent with history of brain surgery, nonicteric, moist mucous membranes, no JVD, midline trachea RESPIRATORY: CTAB CARDIAC: Regular rate and rhythm, no murmurs/gallops/rubs ABDOMEN: Soft, nondistended, nontender, positive bowel sounds, no rebound, no guarding EXTREMETIES: No edema, cyanosis, clubbing NEUROLOGIC: Alert, nonverbal, CN's grossly intact, right hemiparesis SKIN: No rash, wounds. Right chest port noted Results Laboratory Results: 04/12/16 05:15 04/12/16 05:15 04/12/16 04/12/16 05:15 05:15 WBC 8.1 RBC 3.98 Hgb 10.8 L Hct 33.0 L MCV 83 MCH 27.1 MCHC 32.7 RDW 15.8 H Plt Count 305 Seg Neutrophils % 77.5 Lymphocytes % 11.1 L Monocytes % 10.3 Eosinophils % 0.4 Basophils % 0.7 Absolute Neutrophils 6.3 Absolute Lymphocytes 0.9 Absolute Monocytes 0.8 Absolute Eosinophils 0.0 Absolute Basophils 0.1 Sodium 137.6 Potassium 4.0 Chloride 102 Carbon Dioxide 24 Anion Gap 12 BUN 8 Creatinine 0.44 L Est GFR ( Amer) > 60 Est GFR (Non-Af Amer) > 60 Glucose 87 Calcium 8.7 Magnesium 1.9 04/10/16 04/10/16 22:39 22:55 Creatine Kinase 353 H CK-MB (CK-2) 1.86 Troponin I < 0.012 Impressions: Chest X-Ray 04/10/16 13:29 IMPRESSION: NO ACUTE RADIOGRAPHIC FINDING IN THE CHEST. Head CT 04/10/16 16:53 IMPRESSION: Chronic changes. No acute abnormality. Assessment & Plan - Diagnosis (1) Advanced dementia Is this a current diagnosis for this admission?: YesPlan: Multifactorial dementia secondary to vascular dementia and prior CVA. Patient also has history of polysubstance abuse including alcohol abuse. At this time, given patient's overall functional status, feel that hospice is appropriate for this patient and they have spoken with patient's son. While patient continues to have repeated admissions for "altered mental status" patient is nonverbal at baseline and minimally interactive at baseline and therefore accurate assessments of her overall change in mental status are difficult at best. Patient has failure to thrive given her BMI and meets criteria for hospice for advanced dementia. They're amenable to this and she'll return to her nursing facility with hospice care tomorrow. (2) Underweight Is this a current diagnosis for this admission?: YesPlan: Patient BMI 16.3. Currently with PEG tube due to dysphasia. Have consulted nutrition (3) Mass of left lung Is this a current diagnosis for this admission?: YesPlan: Patient has a known mass of the lung was worked up as an outpatient which was highly suspicious for malignancy. Patient is not a candidate for chemotherapy radiation or surgery. (4) Anemia of chronic disease Is this a current diagnosis for this admission?: Yes (5) Right sided weakness Is this a current diagnosis for this admission?: Yes (6) Acute encephalopathy Is this a current diagnosis for this admission?: Yes (7) Chronic obstructive pulmonary disease Qualifiers: COPD type: unspecified COPD Qualified Code(s): J44.9 - Chronic obstructive pulmonary disease, unspecified Is this a current diagnosis for this admission?: Yes (8) Epilepsy Qualifiers: Epilepsy type: other generalized Intractability: not intractable Status epilepticus: without status epilepticus Qualified Code(s): G40.409 - Other generalized epilepsy and epileptic syndromes, not intractable, without status epilepticus Is this a current diagnosis for this admission?: Yes (9) History of polysubstance abuse Is this a current diagnosis for this admission?: Yes (10) History of pulmonary embolism Is this a current diagnosis for this admission?: Yes (11) Vascular dementia Qualifiers: Dementia behavioral disturbance: with behavioral disturbance Qualified Code(s): F01.51 - Vascular dementia with behavioral disturbance Is this a current diagnosis for this admission?: Yes (12) Coronary artery disease Qualifiers: Coronary Disease-Associated Artery/Lesion type: [place] artery [place] vs. transplanted heart: [place] heart Associated angina: without angina Qualified Code(s): I25.10 - Atherosclerotic heart disease of [place] coronary artery without angina pectoris (13) History of DVT (deep vein thrombosis) Is this a current diagnosis for this admission?: Yes (15) History of cerebral aneurysm repair Is this a current diagnosis for this admission?: Yes - Time Time Spent with patient: 25-34 minutes Medications reviewed and adjusted accordingly: Yes Anticipated discharge: SNF Within: within 24 hours
== END 2016-04-13 14:36 ==
LOC: ER 12:47 → EH 21:46 → UNDOADMOB 21:59 → EH 21:59 → 3S 04-11 00:46
PROVIDERS: ADMIT Family Medicine; ATTEND Family Medicine
DX: G93.40 Encephalopathy, unspecified (principal); F01.50 Vascular dementia, unspecified severity, without behavioral disturbance, psychotic disturbance, mood disturbance, and anxiety; G40.909 Epilepsy, unspecified, not intractable, without status epilepticus; J44.9 Chronic obstructive pulmonary disease, unspecified; Z87.898 Personal history of other specified conditions; Z86.711 Personal history of pulmonary embolism; Z79.01 Long term (current) use of anticoagulants; I10 Essential (primary) hypertension; D64.9 Anemia, unspecified; R13.10 Dysphagia, unspecified; I69.351 Hemiplegia and hemiparesis following cerebral infarction affecting right dominant side; R91.8 Other nonspecific abnormal finding of lung field
CPT/HCPCS: 93005; 99285; 36415 ×3; 87040; 87086; 82553; 82550; 83690; 83735 ×2; 85025 ×3; 85610; 85730; 80048 ×3; 80053; 81001; 84484; 83605; 71010; 70450; 93010; 92610; G0378 ×4; A9270 ×27; J3490 ×5; G8996; G8997; G8998; J7685